=== PATIENT | male | born 1960 | race Caucasian/White ===

== ENCOUNTER 2019-11-12 15:57 | Inpatient (IN) | payer BC ==
[~2019-11-12] VITALS: Ht 188 cm; Wt 155.5 kg
--- NOTE | ~2019-11-12 | CON ---
[address] [address] CONSULTATION Name: CYNTHIA LIZARRAGA Room: [address] IN M.R.#: [id number] Admission: 11/12/19 Attend Phys: Marine Barclay MD Discharge: Date of : 60 Report #: [id number] THIS REPORT FOR: //name// cc: Physician not on staff Physician not on staff ~ THIS REPORT FOR: //name// CC: AIDE Barclay Physician staff DATE OF SERVICE: 11/14/2019 REASON FOR CONSULTATION: Thrombocytopenia. REQUESTING PHYSICIAN: Dr. Barclay. 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 He was still breathing and had tachycardia. He was brought to the Emergency Room by EMS. He was found to have sepsis with elevated lactic acid and was admitted to the ICU. He was found to have thrombocytopenia. Hematology consult is requested. Today, he is feeling much better. He is awake, oriented. He does not have any knowledge of having pancytopenia or liver cirrhosis. He admits having a history of alcohol abuse, but currently does not drink. He states he has primary care physician in [facility]. In April, he was evaluated. He believes he had a CT scan of abdomen done, which did not show any abnormality as far as he knows. He does not have any history of hematochezia, melena. SOCIAL HISTORY: Lives with . He does not smoke. FAMILY HISTORY: Noncontributory. REVIEW OF SYSTEMS: See above. PHYSICAL EXAMINATION: GENERAL: Reveals overweight white man, not in acute distress. VITAL SIGNS: Blood pressure 129/63, heart rate is 80, temperature 98.9, respirations 17. HEENT: Does not reveal icterus. NECK: Supple. CARDIAC: Normal S1, S2. LUNGS: Clear. ABDOMEN: Obese. No tenderness on the right upper quadrant, palpation. EXTREMITIES: Lower extremity +2 [place] [address] CONSULTATION Name: CYNTHIA LIZARRAGA Room: [address]#: [id number] Admission: 11/12/19 Attend Phys: Marine Barclay MD Discharge: Date of : 60 Report #: [id number] MENTAL STATUS: Alert and oriented x 3. There is no supraclavicular, axillary lymphadenopathy. LABORATORY DATA: White count 8.9, hemoglobin 10.5, platelets 58, AST 310, ALT ____, total bilirubin 2.4. CT of chest, abdomen and pelvis shows hepatosplenomegaly, retroperitoneal lymphadenopathy. ASSESSMENT AND PLAN: 1. 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 I advised the patient to continue to follow up with maid cleaning cooking when he arrives to [place]. 2. Intraabdominal lymphadenopathy of unclear etiology. I advised him that he will need to have a followup CT scan to make sure that lymphadenopathy is resolved. Thank you very much for allowing me to participate in care of this patient. By: [id number] Edmonds MD /nt
[2019-11-12] MEDS ORDERED: SERTRALINE HCL100 MG PO (16:04)
[2019-11-12] MEDS ORDERED: LISINOPRIL-HCT1 EAC2 PO (16:04)
[2019-11-12] MEDS ORDERED: ASA81BEC PO (16:05)
[2019-11-12 16:10] VITALS: BP 109/54
[2019-11-12 16:27] LABS: BE -7.4 mmol/L (-2 to +3); PCO2 21.4 mmHg (35.0-45.0); PO2 75.1 mmHg (75.0-100.0)
[2019-11-12 16:45] LABS: HEMATOCRIT 33.9 % (42.0-52.0); HEMOGLOBIN 11.6 gm/dL (14.0-18.0); MCH 29.3 pg (26.0-34.0); MCHC 34.2 g/dL (28.0-37.0); MCV 85.6 fL (80.0-100.0); MPV 8.5 fl. (7.2-11.1); NUCLEATED RBCS 0 /100WBC; PLATELET COUNT* 77 thou/uL (150-400); RBC 3.97 mil/uL (4.50-6.00); RDW-CV 16.3 % (10.5-14.5); WBC 16.6 thou/uL (4.0-11.0)
[2019-11-12 16:53] LABS: CREATININE 2.5 mg/dL (0.6-1.3); POTASSIUM 3.6 mmol/L (3.5-5.1)
[2019-11-12 17:07] LABS: ALBUMIN 2.7 g/dL (3.4-5.0); MAGNESIUM 1.4 mg/dL (1.8-2.4); TOTAL BILIRUBIN 1.8 mg/dL (<0.1-1.0); TOTAL PROTEIN 6.3 g/dL (6.4-8.2)
[2019-11-12 17:17] LABS: APTT 32.2 Seconds (25.0-31.3); INR 1.8; PROTIME 18.1 Seconds (9.20-11.50)
[2019-11-12 17:47] LABS: ABSOLUTE LYMPHOCYTES 0.2 thou/uL (0.8-5.3); ABSOLUTE MONOCYTES 0.5 thou/uL (0.0-1.2); ABSOLUTE NEUTROPHILS 15.9 thou/uL (1.6-8.1); ANISOCYTOSIS 1+; PLATELET ESTIMATE DECREASED
[2019-11-12 18:13] LABS: INFLUENZA A ANTIGEN Negative (Negative); INFLUENZA B ANTIGEN Negative (Negative)
[2019-11-12 18:42] LABS: URINE BILIRUBIN 1+ (Negative); URINE BLOOD 3+ (Negative); URINE CLARITY CLEAR; URINE COLOR YELLOW; URINE GLUCOSE-RANDOM NEGATIVE (Negative); URINE KETONES 1+ (Negative); URINE LEUKOCYTES-REFLEX NEGATIVE (Negative); URINE NITRITE-REFLEX NEGATIVE (Negative); URINE PROTEIN 2+ (Negative); URINE SPECIFIC GRAVITY >= 1.030 (1.005-1.030); URINE UROBILINOGEN 0.2 E.U./dl (0.2-1.0)
[2019-11-12 18:44] LABS: ICTOTEST (BILI CONFIRMATORY) Negative (Negative)
[2019-11-12 18:48] LABS: HYALINE CASTS >10 Many /LPF (None Seen)
[2019-11-12 18:49] LABS: BACTERIA-REFLEX 1-9 Few /HPF (None Seen); CRYSTALS None Seen /LPF (None Seen); MUCUS None Seen strn/LPF (None Seen); SQUAMOUS 4-10 Moderate /LPF (0-3); URINE RBC 3-10 Few /HPF (0-2); URINE WBC-REFLEX 0-5 Rare /HPF (0-5)
[2019-11-12 20:26] VITALS: BP 115/74
[2019-11-12 21:13] VITALS: BP 168/66
[2019-11-12 22:01] VITALS: BP 156/48
[2019-11-12 23:01] VITALS: BP 130/67
[2019-11-13] VITALS (20 sets, daily range): BP systolic 100–166; BP diastolic 53–80
[2019-11-13 05:20] LABS: HEMATOCRIT 30.6 % (42.0-52.0); HEMOGLOBIN 10.5 gm/dL (14.0-18.0); MCH 29.6 pg (26.0-34.0); MCHC 34.4 g/dL (28.0-37.0); MCV 86.2 fL (80.0-100.0); MPV 8.5 fl. (7.2-11.1); RBC 3.56 mil/uL (4.50-6.00); RDW-CV 16.2 % (10.5-14.5); WBC 15.2 thou/uL (4.0-11.0)
[2019-11-13 05:34] LABS: CREATININE 1.6 mg/dL (0.6-1.3); POTASSIUM 3.7 mmol/L (3.5-5.1)
[2019-11-13 05:43] LABS: ALBUMIN 2.3 g/dL (3.4-5.0); MAGNESIUM 1.6 mg/dL (1.8-2.4); TOTAL BILIRUBIN 2.2 mg/dL (<0.1-1.0); TOTAL PROTEIN 5.6 g/dL (6.4-8.2); TROPONIN-I LEVEL 0.18 ng/mL (<0.06)
--- NOTE | 2019-11-13 10:14 | EKG ---
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: HERNANDEZ : 1960 Requested By: Shae Nice Order Number: [id number] Sandy MD: Huey Rudolph Measurements Intervals [place] Rate: 132 P: 25 WA: 132 QRS: 33 QRSD: 103 T: 9 QT: 291 QTc: 431 Interpretive Statements Sinus tachycardia Low voltage, precordial leads Baseline wander in lead(s) V1,V4,V6 No previous ECG available for comparison Electronically Signed On 11-13-2019 10:13:54 CDT by Huey Rudolph [email or web address] <ELECTRONICALLY SIGNED> By: Huey Rudolph MD, [facility] 11/13/19 1013 1602 160 Huey Rudolph MD, [facility] /EPI
[2019-11-13 12:23] LABS: AMP/METHAMP Negative (Negative); BARBITURATES Negative (Negative); BENZODIAZEPINES Negative (Negative); COCAINE Negative (Negative); METHADONE Negative (Negative); OPIATES Negative (Negative); PCP Negative (Negative); THC Negative (Negative)
[2019-11-13 16:15] LABS: ABSOLUTE EOSINOPHILS 0.2 thou/uL (0.0-0.7); ABSOLUTE LYMPHOCYTES 1.3 thou/uL (0.8-5.3); ABSOLUTE MONOCYTES 0.8 thou/uL (0.0-1.2); ABSOLUTE NEUTROPHILS 8.2 thou/uL (1.6-8.1); BASOPHILS 0.4 %; EOSINOPHILS 2.2 %; HEMOGLOBIN 10.1 gm/dL (14.0-18.0); MCHC 34.8 g/dL (28.0-37.0); MCV 86.4 fL (80.0-100.0); MONOCYTES 7.3 %; MPV 8.4 fl. (7.2-11.1); NUCLEATED RBCS 0 /100WBC; PLATELET COUNT* 59 thou/uL (150-400); POLYS 78.1 %; RBC 3.36 mil/uL (4.50-6.00); RDW-CV 16.4 % (10.5-14.5); WBC 10.5 thou/uL (4.0-11.0)
[2019-11-13 16:29] LABS: ALBUMIN 2.2 g/dL (3.4-5.0); CALCIUM 7.8 mg/dL (8.5-10.1); CREATININE 1.4 mg/dL (0.6-1.3); MAGNESIUM 2.2 mg/dL (1.8-2.4); PHOSPHORUS* 2.7 mg/dL (2.5-4.9); POTASSIUM 3.7 mmol/L (3.5-5.1); TOTAL BILIRUBIN 2.4 mg/dL (<0.1-1.0); TOTAL PROTEIN 5.4 g/dL (6.4-8.2)
[2019-11-13 16:36] LABS: INR 1.9; PROTIME 19.1 Seconds (9.20-11.50)
--- NOTE | 2019-11-13 16:52 | 2DMMODE ---
[place] [address] 2 D/M-MODE ECHOCARDIOGRAM Name: CYNTHIA LIZARRAGA Room: [address] ADM IN M.R.#: [id number] Admission: 11/12/19 Attend Phys: Marine Barclay, Discharge: Date of : 60 Date of Service: 11/13/19 1652 Report #: [id number] THIS REPORT FOR: cc: Physician not on staff Physician not on staff Huey Rudolph MD [facility] ~ APPROVED REPORT Study performed: 11/13/2019 14:41:30 EXAM: Limited 2D, Doppler, and color-flow Echocardiogram Patient Location: Bedside BSA: 2.66 HR: 89 bpm BP: 133/53 mmHg Other Information Study Quality: Adequate Indications Dyspnea 2D Dimensions IVSd: 14.99 (7-11mm) LVOT Diam: 18.73 (18-24mm) LVDd: 52.67 mm PWd: 13.95 (7-11mm) Ascending Ao: 36.58 (22-36mm) LVDs: 35.52 (25-40mm) Aortic Root: 32.11 mm Volumes Left Atrial Volume (Systole) LA ESV Index: 27.20 mL/m2 Aortic Valve AoV Peak Chandler.: 1.55 m/s AO Peak Gr.: 9.61 mmHg LVOT Max P.42 mmHg AO Mean Gr.: 5.72 mmHg LVOT Mean P.18 mmHg LVOT Max V: 0.78 m/s AO V2 VTI: 24.89 cm LVOT Mean V: 0.50 m/s MINDY (VTI): 1.28 cm2 LVOT V1 VTI: 11.53 cm Mitral Valve E/A Ratio: 1.44 MV Decel. Time: 167.83 [place] [address] 2 D/M-MODE ECHOCARDIOGRAM Name: CYNTHIA LIZARRAGA Room: [address] IN [facility]#: [id number] Admission: 11/12/19 Attend Phys: Marine Barclay, Discharge: Date of : 60 Date of Service: 11/13/19 1652 Report #: [id number] MV E Max Chandler.: 0.94 m/s MV PHT: 48.67 ms MVA (PHT): 4.52 cm2 Pulmonary Valve PV Peak Chandler.: 1.11 m/s PV Peak Gr.: 4.89 mmHg Left Ventricle The left ventricle is normal size. There is normal LV segmental wall motion. Mild concentric left ventricular hypertrophy. Left ventricular systolic function is normal. The left ventricular ejection fraction is within the normal range. LVEF is 55-60%. Right Ventricle Right ventricle is dilated. The right ventricular systolic function is normal. Atria The left atrium size is normal. Interatrial septum not well visualized. Right atrium is dilated. Aortic Valve The Aortic valve is sclerotic. No aortic regurgitation is present. There is no aortic valvular stenosis. Mitral Valve The mitral valve is normal in structure. Trace mitral regurgitation. No evidence of mitral valve stenosis. Tricuspid Valve The tricuspid valve is normal in structure. There is trace tricuspid valve regurgitation noted. Pulmonic Valve The pulmonary valve is normal in structure. There is no pulmonic valvular regurgitation. Great Vessels The aortic root is normal in size. Aortic arch is not visualized. IVC is not visualized. Pericardium There is no pericardial effusion. <Conclusion> LVEF is 55-60%. [place] [address] 2 D/M-MODE ECHOCARDIOGRAM Name: CYNTHIA LIZARRAGA Room: [address] IN M.R.#: [id number] Admission: 11/12/19 Attend Phys: Marine Barclay, Discharge: Date of : 60 Date of Service: 11/13/191651 Report #: [id number] Mild concentric left ventricular hypertrophy. Right ventricle is dilated. The Aortic valve is sclerotic. <ELECTRONICALLY SIGNED> By: Huey Rudolph MD, FACC 11/13/19 165 51 1652 Huey Rudolph MD, FACC /INF
[2019-11-14] VITALS (12 sets, daily range): BP systolic 110–132; BP diastolic 63–76
[2019-11-14 02:06] LABS: HEPATITIS B SURFACE AG Negative (Negative)
[2019-11-14 04:33] LABS: ABSOLUTE EOSINOPHILS 0.2 thou/uL (0.0-0.7); ABSOLUTE LYMPHOCYTES 0.3 thou/uL (0.8-5.3); ABSOLUTE MONOCYTES 0.4 thou/uL (0.0-1.2); ABSOLUTE NEUTROPHILS 7.9 thou/uL (1.6-8.1); BASOPHILS 0.4 %; EOSINOPHILS 2.1 %; HEMATOCRIT 30.3 % (42.0-52.0); HEMOGLOBIN 10.5 gm/dL (14.0-18.0); LYMPHOCYTES 3.5 %; MCH 30.1 pg (26.0-34.0); MCHC 34.6 g/dL (28.0-37.0); MCV 87.2 fL (80.0-100.0); MPV 8.7 fl. (7.2-11.1); NUCLEATED RBCS 0 /100WBC; PLATELET COUNT* 58 thou/uL (150-400); RBC 3.47 mil/uL (4.50-6.00); RDW-CV 16.6 % (10.5-14.5); WBC 8.9 thou/uL (4.0-11.0)
[2019-11-14 04:56] LABS: ALBUMIN 2.1 g/dL (3.4-5.0); ALKALINE PHOSPHATASE 29 U/L (46-116); ANION GAP 7 mmol/L (7-16); BUN 35 mg/dL (7-18); CHLORIDE 104 mmol/L (98-107); CHOLESTEROL 124 mg/dL (<200); CO2 24 mmol/L (21-32); CREATININE 1.2 mg/dL (0.6-1.3); GLUCOSE 163 mg/dL (70-99); HDL CHOLESTEROL 13 mg/dL (>40); LDL CHOLESTEROL 90 mg/dL (<100); MAGNESIUM 2.4 mg/dL (1.8-2.4); POTASSIUM 4.1 mmol/L (3.5-5.1); SGOT 310 U/L (15-37); SGPT 164 U/L (30-65); SODIUM 135 mmol/L (136-145); TC:HDL 9.5 Ratio (Not establshd); TOTAL BILIRUBIN 2.4 mg/dL (<0.1-1.0); TOTAL PROTEIN 5.5 g/dL (6.4-8.2); TRIGLYCERIDE 108 mg/dL (<150); VLDL 22 mg/dL (<40)
[2019-11-14 04:57] LABS: SERUM ASSESSMENT CLEAR
--- NOTE | 2019-11-14 11:43 | EKG ---
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27 : 1960 Requested By: Huey Rudolph Order Number: [id number] Sandy MD: Huey Rudolph Measurements Intervals [place] Rate: 83 P: 46 NE: 167 QRS: 39 QRSD: 115 T: 32 QT: 395 QTc: 465 Interpretive Statements Sinus rhythm Nonspecific intraventricular conduction delay Compared to ECG 11/12/2019 16:02:09 Intraventricular conduction delay now present Sinus tachycardia no longer present Electronically Signed On 11-14-2019 11:43:26 CDT by Huey Rudolph [email or web address] <ELECTRONICALLY SIGNED> By: Huey Rudolph MD, FACC 11/14/19 1143 1016 1016 Huey Rudolph MD, [facility] /EPI
[2019-11-15 00:26] VITALS: BP 116/74
[2019-11-15 04:09] LABS: ABSOLUTE LYMPHOCYTES 0.5 thou/uL (0.8-5.3); ABSOLUTE MONOCYTES 0.7 thou/uL (0.0-1.2); ABSOLUTE NEUTROPHILS 7.1 thou/uL (1.6-8.1); BASOPHILS 0.3 %; EOSINOPHILS 0.1 %; HEMATOCRIT 31.7 % (42.0-52.0); HEMOGLOBIN 10.9 gm/dL (14.0-18.0); LYMPHOCYTES 6.4 %; MCH 29.8 pg (26.0-34.0); MCHC 34.5 g/dL (28.0-37.0); MCV 86.5 fL (80.0-100.0); MONOCYTES 8.7 %; MPV 8.5 fl. (7.2-11.1); NUCLEATED RBCS 0 /100WBC; PLATELET COUNT* 65 thou/uL (150-400); POLYS 84.5 %; RBC 3.67 mil/uL (4.50-6.00); RDW-CV 16.8 % (10.5-14.5); WBC 8.4 thou/uL (4.0-11.0)
[2019-11-15 04:35] LABS: ALBUMIN 2.2 g/dL (3.4-5.0); CALCIUM 8.4 mg/dL (8.5-10.1); CREATININE 1.1 mg/dL (0.6-1.3); MAGNESIUM 2.4 mg/dL (1.8-2.4); POTASSIUM 3.8 mmol/L (3.5-5.1); TOTAL PROTEIN 5.9 g/dL (6.4-8.2)
[2019-11-15 04:38] LABS: % SATURATION 17 % (20-39); IRON 44 ug/dL (50-175)
--- NOTE | 2019-11-15 07:39 | CON ---
[address] [address] CONSULTATION Name: CYNTHIA LIZARRAGA Room: [address] IN M.R.#: [id number] Admission: 11/12/19 Attend Phys: Marine Barclay MD Discharge: Date of : 60 Report #: [id number] THIS REPORT FOR: //name// cc: Physician not on staff Physician not on staff ~ THIS REPORT FOR: //name// CC: AIDE Barclay MD PRIMARY CARE Physician staff DICTATED BY: Maame Bowman [facility] DATE OF SERVICE: 11/14/2019 PRIMARY CARE PHYSICIAN: The patient's primary care physician is in [place], he cannot recall the spelling or his name at this time. Please note at the time of this dictation, the patient was seen and physically examined by myself. REASON FOR CONSULTATION: Elevated LFTs and cirrhosis of the liver. HISTORY OF PRESENT ILLNESS: This is a 59-year-old male who was found down at a truck stop who was unresponsive, but still breathing with a high-grade fever of noted to be 100.5. Apparently, he had not been feeling well. He does have a past history of smoking, but quit 30 years ago. He does have a history of some sleep apnea as well that has been noted. He was also having some fever and chills and he states that his swelling of his lower extremities got significantly worse as well. The patient states he has had a colonoscopy, he states which was done less than 10 years ago and it was normal. In [place], he has never had an upper scope done. He denies any issues with any acid reflux and does not take any medicine for acid reflux at this time. He states his bowels move usually daily, soft and formed with no evidence of any bright red blood or black stools. He also mentions that he has been told he has some liver disease, cirrhosis, but etiology why he has that he has never been told or had any further workup to his knowledge. ALLERGIES: No known drug allergies. MEDICATIONS FROM HOME: See his MAR. PAST MEDICAL HISTORY: Sleep apnea, cirrhosis. PAST SURGICAL HISTORY: [place] [address] CONSULTATION Name: CYNTHIA LIZARRAGA Room: [address] IN [facility]#: [id number] Admission: 11/12/19 Attend Phys: Marine Barclay MD Discharge: Date of : 60 Report #: [id number] FAMILY HISTORY: Negative for any GI or female cancers. 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 His recently had COVID; however, he is negative. He has not smoked for more than 30 years and alcohol is only rarely on social occasions. The patient is noted to be morbidly obese as well. REVIEW OF SYSTEMS: Twelve-point review of systems is essentially negative except what is mentioned in the HPI. PHYSICAL EXAMINATION: VITAL SIGNS: Temperature 37.2, pulse 80, respirations 17, blood pressure 124/63. HEART: Regular rate and rhythm. LUNGS: Diminished, especially in the bases. ABDOMEN: Rotund. Positive bowel sounds in all 4 quadrants with no masses or tenderness noted. LABORATORY AND DIAGNOSTIC DATA: Hemoglobin 10.5, white count 8.9, platelets are 58,000. GFR is 62. BUN is 35, creatinine is 1.2. PT is 19.1, INR is 1.9. Total bilirubin 2.4, alkaline phosphatase 29, ALT 164, AST 310. His drug screen was negative, acute hepatitis panel was negative. CT showed cirrhosis with hepato and splenomegaly, numerous retroperitoneal lymphadenopathies noted, some cardiomegaly and right greater than left infiltrates. Ultrasound shows hepatosplenomegaly with cirrhosis, noted that his MELD is 19 and Child-Bo is B. IMPRESSION: 1. Cirrhosis, etiology unknown, but decompensated. 2. Transaminitis. 3. Thrombocytopenia. 4. Sepsis. He had Gram positive in his blood. 5. Obesity. 6. Pneumonia. PLAN: 1. Recommended EGD. The patient would like to wait until he gets back to [place] for further evaluation. 2. We will continue to monitor his labs. 3. Further recommendations to be made once Dr. Roche sees the [place] [address] CONSULTATION Name: CYNTHIA LIZARRAGA Room: [address] IN M.R.#: [id number] Admission: 11/12/19 Attend Phys: Marine Barclay MD Discharge: Date of : 60 Report #: [id number] Thank you for allowing us to participate in this patient's care. Please do not hesitate to call with any questions in regard to this consult. <ELECTRONICALLY SIGNED> By: Leon Roche DO 11/15/19 0739 0829 [id number] Roche DO /nt
[2019-11-15 08:01] VITALS: BP 130/79
--- NOTE | 2019-11-15 16:07 | CON ---
[address] [address] CONSULTATION Name: CYNTHIA LIZARRAGA Room: [address] IN M.R.#: [id number] Admission: 11/12/19 Attend Phys: Marine Barclay MD Discharge: Date of : 60 Report #: [id number] THIS REPORT FOR: //name// cc: Physician not on staff Physician not on staff ~ THIS REPORT FOR: //name// CC: [facility] physician/PCP Marine Barclay DATE OF SERVICE: 11/13/2019 CARDIOLOGY CONSULTATION HISTORY OF PRESENT ILLNESS: The. The patient is a 59-year-old white male who I was asked to see in the hospital today after he was noted to have an elevated troponin. The patient has no previous history of heart disease. He lives in [place]. 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 He does not exercise on a regular basis. Recently, he has felt not well with fever and drowsiness. He apparently did have a syncopal spell 4 months ago. He has no previous history of heart disease. He has had no previous cardiac evaluation. He apparently was found at a truck stop unresponsive. He apparently was still breathing and had a pulse. He was brought to [place] by ambulance. He was drowsy on admission. He denies a history of a cough, sore throat, loss of taste or smell. He denies a history of chest pain, increased shortness of breath, or palpitations. He has had some lower extremity edema. PAST MEDICAL HISTORY: He has apparently had hip surgery. He does have a history of hypertension. MEDICATIONS: At home include sertraline, lisinopril/HCT, aspirin. ALLERGIES: He has no known drug allergies. FAMILY HISTORY: Negative for heart disease. SOCIAL HISTORY: He is . He and his live in [place]. No smoking or alcohol abuse or illicit drug use. REVIEW OF SYSTEMS: He is overweight, being 6 300 pounds. No history of stroke, asthma, liver disease, kidney disease, cancer, psychiatric illness, chronic skin condition. PHYSICAL EXAMINATION: GENERAL: A large middle-aged male, lying in bed. He appeared in no distress. VITAL SIGNS: He had a blood pressure of 130/70, pulse is 110, [place] [address] CONSULTATION Name: CYNTHIA LIZARRAGA Room: [address]#: [id number] Admission: 11/12/19 Attend Phys: Marine Barclay MD Discharge: Date of : 60 Report #: [id number] night was 100.3. HEENT: He was anicteric. Conjunctivae are pink. Mucous membranes moist. NECK: Veins do not appear distended. No carotid bruits. Neck supple. CHEST: Clear to auscultation. CARDIOVASCULAR: Regular, tachycardia. No significant murmur. ABDOMEN: Obese. EXTREMITIES: Had trace edema in the foot. NEUROLOGIC: He is very drowsy. RADIOLOGICAL DATA: ECG shows sinus tachycardia. There was no significant ST or T-wave change noted. His workup in the Emergency Room last night included a chest x-ray that showed cardiomegaly, clear lung fonseca. LABORATORY DATA: Sodium 135, potassium 3.7, creatinine 1.6. SGOT 277, bilirubin 2.2, SGPT 107. Albumin 2.3. His troponin was 0.20. BNP 2274. White blood cell count 15.2, hemoglobin 11.6, platelet count is only 64,000. IMPRESSION AND RECOMMENDATIONS: 1. Fever. No obvious source. His rapid COVID test in the Emergency Room apparently was negative. 2. Cardiomegaly and peripheral edema. Recommend echocardiogram. 3. Hypertension. The patient is on ZAYRA inhibitor, diuretic. 4. Obesity. 5. Elevated liver function studies. We would recommend liver ultrasound. 6. Borderline troponin. No evidence of acute myocardial infarction. Recommend echocardiogram. 7. Anemia. No history of bleeding. 8. Thrombocytopenia. <ELECTRONICALLY SIGNED> By: Huey Rudolph MD, FACC 11/15/19 1607 0817 [id number] Rudolph MD, FACC /nt
[2019-11-15 20:00] VITALS: BP 155/87
[2019-11-15 22:06] LABS: IgG 1232 mg/dL (603-1613); IgM 153 mg/dL (20-172)
[2019-11-15 23:45] VITALS: BP 159/85
[2019-11-16 04:00] VITALS: BP 159/81
[2019-11-16 04:50] LABS: HEMATOCRIT 29.9 % (42.0-52.0); HEMOGLOBIN 10.1 gm/dL (14.0-18.0); MCH 29.1 pg (26.0-34.0); MCHC 33.6 g/dL (28.0-37.0); MCV 86.5 fL (80.0-100.0); RBC 3.46 mil/uL (4.50-6.00); RDW-CV 16.7 % (10.5-14.5); WBC 8.9 thou/uL (4.0-11.0)
[2019-11-16 05:11] LABS: CALCIUM 8.5 mg/dL (8.5-10.1); CREATININE 1.1 mg/dL (0.6-1.3); MAGNESIUM 2.4 mg/dL (1.8-2.4); TOTAL BILIRUBIN 1.6 mg/dL (<0.1-1.0); TOTAL PROTEIN 5.6 g/dL (6.4-8.2)
[2019-11-16 08:00] VITALS: BP 148/75
[2019-11-16 15:07] LABS: CERULOPLASMIN 22.2 mg/dL (16.0-31.0)
[2019-11-16 16:00] VITALS: BP 151/63
[2019-11-16 20:00] VITALS: BP 164/76; BP 174/86
[2019-11-17] VITALS: BP 156/77
[2019-11-17 04:00] VITALS: BP 177/90
[2019-11-17 08:00] VITALS: BP 173/93
[2019-11-17 13:34] VITALS: BP 186/92
[2019-11-17 17:14] VITALS: BP 154/63
[2019-11-17 20:00] VITALS: BP 172/81
[2019-11-18] VITALS (11 sets, daily range): BP systolic 138–178; BP diastolic 58–81
[2019-11-18 07:10] LABS: HEMATOCRIT 32.2 % (42.0-52.0); HEMOGLOBIN 10.7 gm/dL (14.0-18.0); MCH 28.6 pg (26.0-34.0); MCHC 33.1 g/dL (28.0-37.0); MCV 86.4 fL (80.0-100.0); MPV 8.2 fl. (7.2-11.1); RBC 3.73 mil/uL (4.50-6.00); RDW-CV 16.5 % (10.5-14.5); WBC 13.6 thou/uL (4.0-11.0)
[2019-11-18 07:37] LABS: ALBUMIN 2.2 g/dL (3.4-5.0); CALCIUM 8.3 mg/dL (8.5-10.1); CREATININE 0.9 mg/dL (0.6-1.3); MAGNESIUM 1.9 mg/dL (1.8-2.4); TOTAL BILIRUBIN 2.1 mg/dL (<0.1-1.0)
[2019-11-18 10:06] LABS: ANA INTERPRETATION Negative (Negative)
--- NOTE | 2019-11-18 17:48 | TEE ---
[place] [address] TRANSESOPHAGEAL ECHOCARDIOGRAM Name: CYNTHIA LIZARRAGA Room: [address] IN .R.#: [id number] Admission: 11/12/19 Attend Phys: Marine Barclay, Discharge: Date of : 60 Date of Service: 11/18/19 1747 Report #: [id number] THIS REPORT FOR: cc: Physician not on staff Physician not on staff Dieudonne Mcgrath MD [facility] ~ ADDENDUM APPROVED REPORT Study performed: 11/18/2019 11:38:20 EXAM: Transesophageal Echocardiogram Patient Location: CVL BSA: 2.85 HR: 82 bpm BP: 152/69 mmHg Other Information Study Quality: Good Indications Bacteremia Echo Enhancing Agent Indication: Rule out Shunt Agent(s) / Amount(s) Used: Agitated Saline cc Procedure After obtaining informed consent, patient underwent transesophageal echo in the [facility]. Type of Sedation : Conscious Sedation Sedation was administered by Ute Beckett RN. Sedation was achieved intravenously with: Versed (3) Fentanyl (75) Transesophageal probe was inserted and advanced into esophagus without difficulty by Dieudonne Mcgrath MD, FACC. Echo enhancement indication: R/O Septal defect. Echo enhancement agent administered: Agitated Saline The PJ was performed without complications. Throughout the procedure, the blood pressure, pulse oximetry, cardiac rhythm, and rate were monitored. The patient tolerated the procedure without adverse effects. Recovery from conscious sedation was uneventful and vital signs were stable. [address] [address] TRANSESOPHAGEAL ECHOCARDIOGRAM Name: CYNTHIA LIZARRAGA Room: [address] IN .R.#: [id number] Admission: 11/12/19 Attend Phys: Marine Barclay, Discharge: Date of : 60 Date of Service: 11/18/19 1747 Report #: [id number] Left Ventricle The left ventricle is normal size. There is normal LV segmental wall motion. There is normal left ventricular wall thickness. Left ventricular systolic function is normal. LVEF is 60-65%. Atria Injection of bubbles documented no interatrial shunt. Aortic Valve The aortic valve is normal in structure. No aortic regurgitation is present. There is no aortic valvular stenosis. Mitral Valve The mitral valve is normal in structure. Trace mitral regurgitation. No evidence of mitral valve stenosis. Tricuspid Valve The tricuspid valve is normal in structure. There is no tricuspid valve regurgitation noted. Pulmonic Valve Pulmonic valve is not well visualized. Great Vessels The aortic root is normal in size. <Conclusion> The left ventricle is normal size. There is normal left ventricular wall thickness. Left ventricular systolic function is normal. LVEF is 60-65%. There is normal LV segmental wall motion. Injection of bubbles documented no interatrial shunt. Trace mitral regurgitation. No valvular vegetations seen. <ELECTRONICALLY SIGNED> By: Dieudonne Mcgrath MD, FACC 11/18/191746 46 46 Dieudonne Mcgrath MD, FACC /INF
[2019-11-19] VITALS: BP 148/69
[2019-11-19 04:00] VITALS: BP 164/79
[2019-11-19 08:00] VITALS: BP 151/83
[2019-11-19 08:07] LABS: HEMATOCRIT 32.6 % (42.0-52.0); HEMOGLOBIN 10.7 gm/dL (14.0-18.0); MCH 28.3 pg (26.0-34.0); MCV 85.8 fL (80.0-100.0); MPV 8.4 fl. (7.2-11.1); PLATELET COUNT* 97 thou/uL (150-400); RDW-CV 16.6 % (10.5-14.5); WBC 12.3 thou/uL (4.0-11.0)
[2019-11-19 08:17] LABS: APTT 28.9 Seconds (25.0-31.3); INR 1.4; PROTIME 14.6 Seconds (9.20-11.50)
[2019-11-19 08:19] LABS: ALBUMIN 2.2 g/dL (3.4-5.0); CALCIUM 8.4 mg/dL (8.5-10.1); CREATININE 0.9 mg/dL (0.6-1.3); MAGNESIUM 1.8 mg/dL (1.8-2.4); POTASSIUM 3.9 mmol/L (3.5-5.1); TOTAL BILIRUBIN 2.2 mg/dL (<0.1-1.0); TOTAL PROTEIN 6.2 g/dL (6.4-8.2)
[2019-11-19 10:29] LABS: NUCLEATED RBCS 0 /100WBC
[2019-11-19 11:00] LABS: ABSOLUTE EOSINOPHILS 0.2 thou/uL (0.0-0.7); ABSOLUTE LYMPHOCYTES 1.4 thou/uL (0.8-5.3); ABSOLUTE MONOCYTES 1.1 thou/uL (0.0-1.2); ABSOLUTE NEUTROPHILS 9.6 thou/uL (1.6-8.1); PLATELET ESTIMATE ADEQUATE
[2019-11-19 12:00] VITALS: BP 143/57
[2019-11-19 20:00] VITALS: BP 134/67
[2019-11-20] VITALS: BP 123/60
[2019-11-20 04:00] VITALS: BP 139/60
[2019-11-20 08:00] VITALS: BP 141/71
[2019-11-20 08:48] LABS: HEMATOCRIT 31.8 % (42.0-52.0); HEMOGLOBIN 10.7 gm/dL (14.0-18.0); MCH 28.8 pg (26.0-34.0); MCHC 33.6 g/dL (28.0-37.0); MCV 85.6 fL (80.0-100.0); MPV 7.9 fl. (7.2-11.1); RBC 3.71 mil/uL (4.50-6.00); RDW-CV 16.2 % (10.5-14.5); WBC 11.5 thou/uL (4.0-11.0)
[2019-11-20 09:47] LABS: ALBUMIN 2.3 g/dL (3.4-5.0); CALCIUM 8.1 mg/dL (8.5-10.1); CREATININE 0.9 mg/dL (0.6-1.3); MAGNESIUM 1.7 mg/dL (1.8-2.4); POTASSIUM 3.5 mmol/L (3.5-5.1); TOTAL BILIRUBIN 2.5 mg/dL (<0.1-1.0); TOTAL PROTEIN 6.5 g/dL (6.4-8.2)
[2019-11-20 16:38] VITALS: BP 124/57
[2019-11-20 20:00] VITALS: BP 149/68
[2019-11-21] VITALS: BP 140/71
[2019-11-21 04:00] VITALS: BP 138/66
[2019-11-21] MEDS ORDERED: XIFAXAN550 M1 PO (09:04)
[2019-11-21] MEDS ORDERED: HYDROCORT-PRAMO30 GM RECTAL (09:04)
[2019-11-21] MEDS ORDERED: FLUCONAZOLE 10100 MG PO (09:04)
[2019-11-21] MEDS ORDERED: CARAFATE 11 GM/10 M1 PO (09:04)
[2019-11-21] MEDS ORDERED: PROTONIX40 M2 PO (09:04)
[2019-11-21] MEDS ORDERED: LACTULOSE20 GM/30 M PO (09:04)
[2019-11-21 12:00] VITALS: BP 119/50
--- NOTE | 2019-11-21 12:21 | CON ---
[facility] [address] [place] [address] CONSULTATION Name: CYNTHIA LIZARRAGA Room: [address] IN M.R.#: [id number] Admission: 11/12/19 Attend Phys: Marine Barclay MD Discharge: Date of : 60 Report #: [id number] THIS REPORT FOR: //name// cc: Physician not on staff Physician not on staff ~ THIS REPORT FOR: //name// CC: AIDE Barclay Physician staff DATE OF SERVICE: 11/13/2019 REQUESTING PHYSICIAN: Dr. Marine Barclay. INDICATION FOR CONSULTATION: High-grade fever with sepsis, etiology uncertain. HISTORY OF PRESENT ILLNESS: This is a 59-year-old gentleman. He says he only has a remote history of smoking and only smoked occasionally more than 30 years ago. He does appear to have a clinical history consistent with obstructive sleep apnea. He has not been previously diagnosed. The patient is reported to live in [place]. 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 He has been on the road a lot. Over the last several days the patient has had a high-grade fever up to 39.6 degrees Celsius. He also had chills. He has been drowsy in fact has had significant change in his mental status compared with his baseline. He has also developed swelling of lower extremities. The patient also feels that he is significantly worse. The patient is noted to be in acute renal failure and having a significant metabolic acidosis with a creatinine of 2.5 on initial presentation. He also has significant elevation of his liver function enzymes and his coagulation studies are consistent with a low-grade DIC. The patient still does remain hemodynamically stable and he has been maintaining O2 saturation in the high 90s on 3 liters nasal cannula. In fact, he had the oxygen off. When I saw him, he has been fluid resuscitated with saline. There is improvement in his creatinine as well as metabolic acidosis as a result. The patient is significantly drowsy and therefore is unable to provide further history or review of systems. PAST MEDICAL HISTORY: Hypertension, hip surgery. He has a clinical history consistent with obstructive sleep apnea, he has not been previously diagnosed. SOCIAL HISTORY: He lives in [place]. 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 He says that he smoked occasionally more than 30 years ago, has not smoked for more than 30 years. No known history of heavy alcohol use or illegal drug use. ALLERGIES: [place] [address] CONSULTATION Name: CYNTHIA LIZARRAGA Room: [address] IN [facility]#: [id number] Admission: 11/12/19 Attend Phys: Marine Barclay MD Discharge: Date of : 60 Report #: [id number] CURRENT MEDICATIONS: List in Drive.SG reviewed. HOME MEDICATIONS: List in Drive.SG reviewed. FAMILY HISTORY: Negative for heart disease. There is no pertinent family history. PHYSICAL EXAMINATION: GENERAL: He is markedly drowsy, but arousable. He is able to communicate only to a limited extent; however, he is alert, awake and oriented. VITAL SIGNS: He has a pulse of 112 and a blood pressure of 133/53. He has a high-grade fever of 38.8. His O2 saturation is last recorded at 97%. He had briefly taken off oxygen when I saw him. He does appear to be hoarse. His body mass index is elevated to 41.3. HEENT: Head is normocephalic and atraumatic. He appears to have a narrow airway. NECK: Does not show raised JVP, asymmetry, mass or lymph nodes. CHEST: Symmetrical expansion on inspection and palpation. On auscultation, chest is essentially clear. HEART: Regular. There is no murmur. ABDOMEN: Mildly distended, nontender. EXTREMITIES: Lower extremities show 2+ edema bilaterally. There is no calf tenderness. SKIN: Dry and intact. NEUROLOGICAL: Mental status as above. He does move all extremities bilaterally equally and spontaneously with no focal deficit identified. LABORATORY DATA: The patient's chest x-rays yesterday as well as today are in [facility] and these are reviewed. There are increased reticular markings bilaterally, which could be secondary to mild increase in pulmonary vascular congestion as well as interstitial infiltrates secondary to viral or atypical pneumonia. It appears more likely to me that the patient has atypical or viral pneumonia. The patient had a subclavian central line in place yesterday, I do not see it in place today, it was malpositioned. It is possible that it has been removed. The patient's CBC, which shows significant thrombocytopenia. Chemistries, which show acute renal failure as well as acute liver injury in [facility] reviewed. Coagulation studies are consistent with mild DIC. Urinalysis is abnormal in [facility] reviewed. COVID-19 screen is negative. PCR is pending. Arterial blood gas yesterday shows a significant metabolic acidosis, compensated. ASSESSMENT AND PLAN: 1. Systemic inflammatory response syndrome/sepsis/suspected COVID-19. I have significant suspicion of COVID-19 despite the fact that the patient has antigen negative, the PCR is pending at this time. Certainly, there could be several [address] [address] CONSULTATION Name: CYNTHIA LIZARRAGA Room: [address] [place] [facility]#: [id number] Admission: 11/12/19 Attend Phys: Marine Barclay MD Discharge: Date of : 60 Report #: [id number] other etiologies. The patient is for a CT abdomen and pelvis as well as chest shortly. We will review and then advise further. If the patient's CT chest is consistent with COVID-19, then he would be a potential candidate for administration of convalescent plasma. We will need to evaluate logistics of arranging the same. The patient's LFTs are too high to administer remdesivir for remdesivir will be a significant risk. I will give him steroids. I went ahead and ordered one dose of Solu-Medrol. After reviewing CT it is likely that I will order more steroids. I agree with Zosyn. He has also been pancultured. I will also obtain a nasal swab for methicillin-resistant Staphylococcus aureus. Agree with continuing Zosyn. Linezolid is contraindicated in this patient and vancomycin will have significant risks, I therefore did not order either at this time, I will assess further once the CT is performed. If there are reticular infiltrates, I will add atypical coverage as well. 2. Acute respiratory insufficiency/altered mental status/suspected obstructive sleep apnea, I feel that the patient would benefit from a BiPAP while he is drowsy or asleep and potentially could be placed on BiPAP at this time and may benefit. The patient, however, at this time does appear to be needing to stay in the ICU and we do not have a negative pressure room available in the ICU at this time. I therefore did not order the same at this time, we will need to assess this further in case his respiratory status worsens. 3. Acute renal failure with metabolic acidosis. This does appear to be improved on the labs today. I will repeat labs this evening and see where we stand. Due to low platelets, I am trying to avoid an arterial stick for a repeat ABGs. It is possible that we need the same result. We will try to limit arterial sticks if possible. 4. Coagulopathy/thrombocytopenia possible low-grade DIC. The Oncology service has also been consulted. I will repeat coags as well as a D-dimer this evening. 5. 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 Echocardiogram is pending at this time. We would also recommend venous Dopplers. I held off on SCDs, pending venous Doppler results. We will place him on SCDs if these are negative, 6. Altered mental status. We will do a CT head as well. 7. Gastrointestinal prophylaxis. We would add Protonix. 8. IV access, may need a PICC line. Thanks for this consultation. The patient is critically ill at this time. Total time spent providing critical care to this patient today exceeds 55 minutes. <ELECTRONICALLY SIGNED> By: Reuben Cantor MD 11/21/19 1221 1405 [id number] Cantor MD /nt
[2019-11-21 16:35] VITALS: BP 128/44
[2019-11-21 20:00] VITALS: BP 115/55
[2019-11-22] VITALS: BP 129/62
[2019-11-22 04:00] VITALS: BP 147/64
[2019-11-22 05:13] LABS: ABSOLUTE BASOPHILS 0.1 thou/uL (0.0-0.2); ABSOLUTE EOSINOPHILS 0.2 thou/uL (0.0-0.7); ABSOLUTE LYMPHOCYTES 1.6 thou/uL (0.8-5.3); ABSOLUTE MONOCYTES 0.9 thou/uL (0.0-1.2); ABSOLUTE NEUTROPHILS 4.2 thou/uL (1.6-8.1); BASOPHILS 0.9 %; EOSINOPHILS 2.2 %; HEMATOCRIT 28.5 % (42.0-52.0); HEMOGLOBIN 9.7 gm/dL (14.0-18.0); LYMPHOCYTES 22.9 %; MCH 29.8 pg (26.0-34.0); MCHC 34.2 g/dL (28.0-37.0); MCV 87.1 fL (80.0-100.0); MONOCYTES 12.9 %; MPV 8.1 fl. (7.2-11.1); NUCLEATED RBCS 0 /100WBC; PLATELET COUNT* 74 thou/uL (150-400); POLYS 61.1 %; RBC 3.27 mil/uL (4.50-6.00); RDW-CV 16.1 % (10.5-14.5); WBC 6.9 thou/uL (4.0-11.0)
[2019-11-22 05:34] LABS: ALBUMIN 2.2 g/dL (3.4-5.0); CALCIUM 8.1 mg/dL (8.5-10.1); CREATININE 0.9 mg/dL (0.6-1.3); MAGNESIUM 1.7 mg/dL (1.8-2.4); POTASSIUM 3.4 mmol/L (3.5-5.1); TOTAL BILIRUBIN 2.5 mg/dL (<0.1-1.0); TOTAL PROTEIN 6.4 g/dL (6.4-8.2)
[2019-11-22 08:00] VITALS: BP 137/67
[2019-11-22 11:44] VITALS: BP 134/64
== END 2019-11-22 13:10 | DRG 871 ==
LOC: M.ERS 15:57 → M.2W 17:58 → M.TBA-ER 17:58 → M.ICU 17:58 → M.2W 11-15 14:09
PROVIDERS: Internal Medicine Cardiovascular Disease; Internal Medicine Critical Care Medicine; Internal Medicine Gastroenterology; Personal Emergency Response Attendant; ADMIT Internal Medicine; ATTEND Internal Medicine
PROC: 0DJ08ZZ Inspection of Upper Intestinal Tract, Via Natural or Artificial Opening Endoscopic (ICD-10-PCS; principal; 2019-11-15)
PROC: 05HY33Z Insertion of Infusion Device into Upper Vein, Percutaneous Approach (ICD-10-PCS; 2019-11-19)
PROC: 5A09357 Assistance with Respiratory Ventilation, Less than 24 Consecutive Hours, Continuous Positive Airway Pressure (ICD-10-PCS; 2019-11-22)
DX: A40.1 Sepsis due to streptococcus, group B (principal); R65.21 Severe sepsis with septic shock; G92 Toxic encephalopathy; J15.6 Pneumonia due to other Gram-negative bacteria; D68.9 Coagulation defect, unspecified; N17.9 Acute kidney failure, unspecified; D61.818 Other pancytopenia; Z68.41 Body mass index [BMI] 40.0-44.9, adult; I10 Essential (primary) hypertension; E66.9 Obesity, unspecified; D64.9 Anemia, unspecified; D69.6 Thrombocytopenia, unspecified; R59.1 Generalized enlarged lymph nodes; E66.01 Morbid (severe) obesity due to excess calories; K44.9 Diaphragmatic hernia without obstruction or gangrene; K21.00 Gastro-esophageal reflux disease with esophagitis, without bleeding; K70.30 Alcoholic cirrhosis of liver without ascites; I95.9 Hypotension, unspecified; F32.9 Major depressive disorder, single episode, unspecified; R13.10 Dysphagia, unspecified; Z79.899 Other long term (current) drug therapy

== ENCOUNTER 2019-11-22 11:54 | Inpatient (IN) | payer BC ==
[~2019-11-22] VITALS: Ht 188 cm; Wt 145.6 kg
--- NOTE | ~2019-11-22 | CON ---
[address] [address] CONSULTATION Name: CYNTHIA LIZARRAGA Room: [address] IN ..#: [id number] Admission: 11/22/19 Attend Phys: Mello Serrato MD Discharge: Date of : 60 Report #: [id number] THIS REPORT FOR: //name// cc: Physician not on staff Physician not on staff ~ REASON FOR CONSULTATION: Acute kidney injury. CONSULTING PHYSICIAN: Mello Serrato MD. HISTORY OF PRESENT ILLNESS: A 59-year-old gentleman initially admitted on 11/21 with strep bacteremia, right lower extremity cellulitis and pneumonia. I am asked to see him because of a rise in serum creatinine. His creatinine over the last 4 checks has been 1.8 but on 11/26, it was 0.8. He was receiving vancomycin. He did have a renal ultrasound, which was nonrevealing. He presently appears to be awake and alert and has no complaints. REVIEW OF SYSTEMS: Constitutional, psych, heme, eyes, ENT, respiratory, cardiac, GI, , endocrine, all negative except as documented above. PAST MEDICAL HISTORY: Cirrhosis, alcohol related; hypertension; depression. SOCIAL HISTORY: No tobacco. Positive alcohol. FAMILY HISTORY: Not pertinent in this 59-year-old gentleman. CURRENT MEDICATIONS: Reviewed. PHYSICAL EXAMINATION: VITAL SIGNS: Blood pressure is 125/69, pulse 76, respirations 20, temperature ____. GENERAL: No acute distress. EYES: Open. EARS: Externally normal. NECK: Supple. CARDIOVASCULAR: Regular rate. LUNGS: No crackles. ABDOMEN: Soft, nontender. No fluid wave. MUSCULOSKELETAL: Nontender. PSYCHIATRIC: Awake, alert. LABORATORY DATA: White cell count 4.7, hemoglobin 8.5, platelets 83. Sodium 135, potassium 4.4, chloride 102, bicarbonate 27, BUN 21, creatinine 1.8, glucose 90, calcium 9.1, albumin 1.9. ASSESSMENT: 1. Acute kidney injury with creatinine of 1.8 over the last 4 checks in the setting of bacteremia, pneumonia, alcoholic cirrhosis. 11/26, [place] [address] CONSULTATION Name: CYNTHIA LIZARRAGA Room: [address] ADM IN [facility]#: [id number] Admission: 11/22/19 Attend Phys: Mello Serrato MD Discharge: Date of : 60 Report #: [id number] 0.8; 11/26, vancomycin level was 18; kidney ultrasound was okay. 2. Hypertension. 3. Right lower extremity cellulitis. 4. Alcoholic cirrhosis. 5. Hypoalbuminemia with an albumin of 1.9. PLAN: 1. We will check a random vancomycin level. 2. Check UA. 3. Check bladder scan. 4. We will administer 2 doses of IV albumin. 5. Anticipate renal function will improve. Creatinine appears to have plateaued. We will monitor and follow along. Thank you for requesting my opinion in the care and management of this patient. By: [id number] Srinivasan Camara MD /nt
--- NOTE | ~2019-11-22 | PROC ---
[address] [address] PROCEDURE REPORT Name: CYNTHIA LIZARRAGA Room: [address] ADM IN ..#: [id number] Admission: 11/22/19 Attend Phys: Mello Serrato MD Discharge: Date of : 60 Report #: [id number] THIS REPORT FOR: //name// cc: Physician not on staff Physician not on staff ~ THIS REPORT FOR: //name// For GI report, please see the Provation report in Perceptive 7 content. By: [id number] Records Staff [facility] /HERNANDEZ
[~2019-11-22 11:54] MED LIST: ASA81BEC PO; CARAFATE 11 GM/10 M1 PO; FLUCONAZOLE 10100 MG PO; HYDROCORT-PRAMO30 GM RECTAL; LACTULOSE20 GM/30 M PO; LISINOPRIL-HCT1 EAC2 PO; PROTONIX40 M2 PO; SERTRALINE HCL100 MG PO; XIFAXAN550 M1 PO
[2019-11-22 14:37] VITALS: BP 135/64
[2019-11-22 15:52] VITALS: BP 108/50
--- NOTE | 2019-11-22 17:24 | NUR ---
ASSUMMED CARE OF PT UPON ADMISSION TO UNIT, PT ALERT AND ORINETED, PT TRANSFERS WITH GB WALKER ASSIST OF 1, AMBULATED TO BATHROOM, HAD MODERATE BM WITH LARGE AMOUNT OF BRIGHT RED BLOOD IN TOILET, DISCUSSED WITH PT AND AND STATES THAT WHEN SHE CLEANSES HIM AFTER BM SHE HAS NOTED LARGE BLOODY CLOTS, OBTAIND ORDER FOR GI CONSULT, PICC LINE PATENT IN RIGHT UPPER ARM, PT C/O SORE THROAT, THROAT SPRAY IN ROOM BUT STATES HE DOESNT FEEL IT HELPS, ASSISTED PT TO BATH SITTING AT SINK, BRUSH PATENT AND DRAINING ORANGE URINE, RASH NOTED ON BACK WITH PEELING AREAS, OOINTMENT APPLIED, EDEMA IN BILATERAL LE, PT ENCOURAGED TO USE IS AND TO COUGH AND DEEP BREATHE, PT AND ORIENTED TO ROOM AND REHAB ROUTINE, ASSESSMENT COMPLETE, HOURLY ROUNDING COMPLETE, WILL CONTINUE TO MONITOR.
[2019-11-22 19:17] LABS: CALCIUM 8.3 mg/dL (8.5-10.1); POTASSIUM 3.4 mmol/L (3.5-5.1)
[2019-11-22 20:04] VITALS: BP 135/65
--- NOTE | 2019-11-22 20:06 | NUR ---
ON ADMISSION PATIENT'S ASPIRIN HAD BEEN D/C PRIOR TO ADMISSION TO ROOM 321 SO PATIENT WAS NOT ON ANTICOAGULATED MEDICATION.
--- NOTE | 2019-11-22 21:10 | NUR ---
AWAKENED FOR REASSESSMENT AND MEDICATION PASS. DENIES DISCOMFORT. CALL LIGHT WITHIN REACH. BRUSH TO DEPENDENT DRAINAGE WITH ORANGE URINE.
[2019-11-23 03:59] LABS: HEMATOCRIT 27.6 % (42.0-52.0); HEMOGLOBIN 9.4 gm/dL (14.0-18.0); MCH 29.7 pg (26.0-34.0); MCHC 34.2 g/dL (28.0-37.0); MPV 8.1 fl. (7.2-11.1); RBC 3.17 mil/uL (4.50-6.00); RDW-CV 16.3 % (10.5-14.5); WBC 6.1 thou/uL (4.0-11.0)
[2019-11-23 04:02] LABS: CALCIUM 7.9 mg/dL (8.5-10.1); CREATININE 0.9 mg/dL (0.6-1.3); POTASSIUM 3.4 mmol/L (3.5-5.1)
--- NOTE | 2019-11-23 05:30 | NUR ---
RESTED ON/OFF. GOOD BLOOD RETURN FROM RIGHT UPPER ARM PICC. HOURLY ROUNDING IN PROGRESS.
[2019-11-23 08:00] VITALS: BP 124/60
--- NOTE | 2019-11-23 16:39 | NUR ---
AM ASSESSMENT AND VITAL SIGNS COMPLETED DOCUMENTED. PT WORKED WITH ALL THERAPIES, TOLERATED WELL. BILATERAL VENOUS DOPPLER OF LOWER EXTREMETIES NEGATIVE FOR DVT. PT IS AMBULATORY WITH A WALKER AND STAND BY ASSIST, ABLE TO MANAGE HIS BARRY CARE AND CLOTHING INDEPENDENTLY. PT ENCOURAGED TO KEEP HIS LEGS ELEVATED TO DECREASE SWELLING AND CELLULITIS. PT WILL BE STARTING A BOWEL PREP FOR A COLONOSCOPY TOMORROW. FALL PRECAUTIONS AND HOURLY ROUNDING CONTINUE.
--- NOTE | 2019-11-23 18:20 | NUR ---
DR MOSES CALLED AND RESCHEDULED FOR MONDAY. PT NOTIFIED.
[2019-11-23 19:20] VITALS: BP 149/70
--- NOTE | 2019-11-23 19:20 | NUR ---
IN [employer] WATCHING TV. BRUSH TO DEPENDENT DRAINAGE WITH ORANGE URINE. CALL LIGHT WITHIN REACH.
[2019-11-23 22:02] LABS: CALCIUM 8.4 mg/dL (8.5-10.1); CREATININE 0.9 mg/dL (0.6-1.3); POTASSIUM 3.2 mmol/L (3.5-5.1)
[2019-11-23 22:06] LABS: MAGNESIUM 1.6 mg/dL (1.8-2.4)
--- NOTE | 2019-11-24 05:14 | NUR ---
RESTED QUIETLY. MG+ AND K+ REPLACED WITH ELECTROLYTE PROTOCOL. PATIENT TO RECEIVE ANOTHER DOSE OF MG+ BEFORE ELECTROLTYES ARE RECHECKED. HOURLY ROUNDING IN PROGRESS.
[2019-11-24 08:00] VITALS: BP 126/58
[2019-11-24 10:47] LABS: HEMATOCRIT 29.1 % (42.0-52.0); HEMOGLOBIN 9.8 gm/dL (14.0-18.0); MCH 29.4 pg (26.0-34.0); MCHC 33.8 g/dL (28.0-37.0); MPV 8.4 fl. (7.2-11.1); RBC 3.34 mil/uL (4.50-6.00); WBC 6.2 thou/uL (4.0-11.0)
[2019-11-24 11:09] LABS: ALBUMIN 2.2 g/dL (3.4-5.0); CALCIUM 8.1 mg/dL (8.5-10.1); CREATININE 0.8 mg/dL (0.6-1.3); MAGNESIUM 1.6 mg/dL (1.8-2.4); POTASSIUM 3.9 mmol/L (3.5-5.1); TOTAL BILIRUBIN 2.7 mg/dL (<0.1-1.0); TOTAL PROTEIN 7.2 g/dL (6.4-8.2)
--- NOTE | 2019-11-24 18:21 | NUR ---
COLON PREP STARTED ORDERED. PT WILL BE NPO AFTER MIDNIGHT FOR COLONOSCOPY MONDAY. FC DC'D PER DR STORM'S REQUEST. PT HASN'T VOIDED BUT STATES HE ISN'T FEELING AN URGE TO VOID AND DOESN'T FEEL ANY PRESSURE IN HIS BLADDED. UA NEEDS TO BE COLLECTED. FALL PRECAUTIONS AND HOURLY ROUNDING CONTINUE.
--- NOTE | 2019-11-24 19:20 | NUR ---
SITTING UP IN RECLINER WITH LEGS ELEVATED. WATCHING TV AND DRINKING GOLYTE. 3+ EDEMA NOTED TO RIGHT LOWER EXTREMITY. AMBULATED TO THE BATHROOM WITH SBA, WALKER. WOULDN'T PUT GAITBELT ON. STATES IN A HURRY. VOIDED URINE ON THE FLOOR IN THE BATHROOM. HAD SMALL PIECES OF BROWN FORMED STOOL. INFORMED PATIENT THAT HIS STOOL NEEDED TO BE CLEAR IN ORDER TO HAVE COLONOSCOPY DONE TOMORROW. ENCOURAGED PATIENT TO KEEP DRINKING THE GOLYTE. PATIENT ON CLEAR LIQUIDS. REMINDED PATIENT OF NPO STATUS AFTER MIDNIGHT. GAVE A DOSE OF ORAL MAGNESIUM FOR 1.6 MG+ LEVEL. CALL LIGHT WITHIN REACH. PATIENT STATES WANTS TO STAY UP IN RECLINER FOR NOW. TWO BLANKETS FROM BLANKET WARMER PROVIDED. PATIENT COMPLAINING OF BEING COLD. OTHER RN ON DUTY CALL[employer] TO INFORM THEM OF THE UNIT BEING COLD. HOUSEKEEPING NOTIFIED OF NEED FOR BATHROOM FLOOR TO BE MOPPED.
[2019-11-24 19:25] VITALS: BP 128/63
--- NOTE | 2019-11-25 04:31 | NUR ---
RESTED FROM ABOUT MIDNIGHT TO 0400. STOOL SEEMS TO BE BE CLOSE TO CLEAR. DIFFICULT TO ASCERTAIN DUE TO PATIENT'S ORANGE URINE. ASKED PATIENT IF WITH NEXT VOID IF HE THOUGHT HE COULD VOID IN THE URINAL FOR A SPECIMAN AND PATIENT STATES HE THOUGHT HE COULD. NPO FOR COLONOSCOPY. HOURLY ROUNDING IN PROGRESS.
[2019-11-25 08:23] VITALS: BP 120/63
[2019-11-25 08:27] VITALS: BP 120/63
[2019-11-25 08:51] LABS: URINE BILIRUBIN NEGATIVE (Negative); URINE BLOOD 1+ (Negative); URINE CLARITY CLEAR; URINE COLOR YELLOW; URINE GLUCOSE-RANDOM NEGATIVE (Negative); URINE KETONES NEGATIVE (Negative); URINE LEUKOCYTES-REFLEX TRACE (Negative); URINE NITRITE-REFLEX NEGATIVE (Negative); URINE PROTEIN NEGATIVE (Negative); URINE SPECIFIC GRAVITY 1.015 (1.005-1.030); URINE UROBILINOGEN 0.2 E.U./dl (0.2-1.0)
[2019-11-25 08:57] LABS: SQUAMOUS 0-3 Few /LPF (0-3); URINE RBC 0-2 Rare /HPF (0-2); URINE WBC-REFLEX 0-5 Rare /HPF (0-5)
[2019-11-25 08:58] LABS: MUCUS 4-6 Moderate strn/LPF (None Seen)
[2019-11-25 08:59] LABS: CRYSTALS None Seen /LPF (None Seen); FINE GRANULAR CASTS 0-3 Few /LPF (None Seen); HYALINE CASTS 0-3 Few /LPF (None Seen)
--- NOTE | 2019-11-25 09:51 | CON ---
[address] [address] CONSULTATION Name: CYNTHIA LIZARRAGA Room: [address] IN .R.#: [id number] Admission: 11/22/19 Attend Phys: Mello Serrato MD Discharge: Date of : 60 Report #: [id number] THIS REPORT FOR: //name// cc: Physician not on staff Physician not on staff ~ THIS REPORT FOR: //name// DATE OF SERVICE: 11/23/2019 HISTORY OF PRESENT ILLNESS: This is a pleasant 59-year-old male who has a past medical history significant for coronary artery disease, hypertension and hyperlipidemia. The patient was brought in to [facility] a few days back when he was found unresponsive at a truck stop. The patient was diagnosed with sepsis and since has been discharged to the rehabilitation unit for further evaluation. The gastroenterology service has now been consulted for hematochezia. The patient reports that he has noticed blood and blood clots while wiping for the last several days. The patient reports that yesterday, he had a large bloody bowel movement with bright red blood enough to turn the toilet bowl red in color. The patient denies any abdominal pain. The patient denies similar episodes in the past. He does report having a colonoscopy 5 years back, which was unremarkable. PAST MEDICAL HISTORY: Hypertension, depression. PAST SURGICAL HISTORY: Nonsignificant. SOCIAL HISTORY: The patient denies smoking or recreational drug use. He does give a history of alcohol abuse. FAMILY HISTORY: No family history of colon cancer or Rucker related neoplasia. REVIEW OF SYSTEMS: Comprehensive 10-point review of systems is negative except for what was mentioned in the HPI. PHYSICAL EXAMINATION: VITAL SIGNS: Temperature 37.0, pulse rate 70, respirations 16, blood pressure 124/50. GENERAL: The patient is alert, awake, oriented x 3. HEENT: Pupils are equal, round, reactive to light and accommodation. Mucous membranes are moist. There is no congestion. LUNGS: Clear to auscultation bilaterally. CARDIOVASCULAR: Rate and rhythm regular, S1, S2 present. ABDOMEN: Soft. There is no distention, guarding or rigidity. EXTREMITIES: Warm, trace edema. LABORATORY DATA: Hemoglobin 9.0, baseline hemoglobin around 10, [place] [address] CONSULTATION Name: CYNTHIA LIZARRAGA Room: [address] IN [facility]#: [id number] Admission: 11/22/19 Attend Phys: Mello Serrato MD Discharge: Date of : 60 Report #: [id number] 27.6, WBC count 6.1, platelet count 77. Sodium 134, potassium 3.4, chloride 101, bicarbonate 28, BUN 14, creatinine 0.9. ASSESSMENT AND PLAN: A pleasant 59-year-old male who presented initially to the hospital with septic shock and since has been transferred to the rehabilitation unit. He now presents with hematochezia. The patient has painless hematochezia with a small drop in hemoglobin. I would recommend a colonoscopy for further evaluation. It appears that the patient will have to be transferred to Med/Surg before this can happen, we will discuss this with his primary team to facilitate transfer. Thank you for this consultation. <ELECTRONICALLY SIGNED> By: Omar Patricio MD 11/25/19 0951 1431 [id number] Patricio MD /nt
--- NOTE | 2019-11-25 12:16 | NUR ---
Nutrition: RD saw pt last week as well. Pt now admitted to Rehab. Has had some edema and fluid-related wt changes. Wt is 321#. PMHx: OBE, HTN, ETOH cirrhosis. BG 105, alb 2.2, prealb 8.1 - severely depleted. Hopeful for good po intake today, as diet was just advanced to [facility] from NPO. Will follow weekly on Rehab unit. Low nutrition risk.
[2019-11-25 13:00] VITALS: BP 149/73
--- NOTE | 2019-11-25 13:52 | NUR ---
ASSUMED CARE AT 0730. ALERT ORIENTED PLEASANT COOPERATIVE. HX OF ENCEPHALOPATHY. PT. NPO FOR COLONOSCOPY THIS A.M. TRANSFERS WITH SBA G BELT WALKER FROM BED TO W/C. RETURNED AROUND 1300 FROM COLONOSCOPY PER W/C. NO BIOPSY WAS DONE ONLY HEMORHOIDS NOTED. DID HAVE SOME ITCHING IN PACU SLIGHT RASH NOTED ON ABDOMEN, WAS GIVEN BENADYL IV IN PACU. VS WERE WNL MEAL AND WATER PROVIDED. AASHISH AT BEDSIDE. VOIDS PER URINAL. RESTING IN BED UPON RETURN TO ROOM. HOURLY ROUNDING COMPLETED.
--- NOTE | 2019-11-25 16:27 | NUR ---
PT. HAS PARTICIPATED IN THERAPIES AFTER LUNCH AND HAS HAD C/O PAIN RT. LOWER EXTREMITY. REDNESS IN THIS AREA OINTMENT APPLIED AND DR. FLORES ORDERED WOUND NURSE CONSULT SPOKE WITH WOUND NURSE AND HE WILL SEE PT. IN A.M. TRAMADOL ORDERED FOR PAIN PER DR. FLORES. APPETITE GOOD AT LUNCH MEAL.
[2019-11-25 19:55] VITALS: BP 104/46
[2019-11-26 05:02] LABS: HEMATOCRIT 25.3 % (42.0-52.0); HEMOGLOBIN 8.5 gm/dL (14.0-18.0); MCH 29.5 pg (26.0-34.0); MCHC 33.5 g/dL (28.0-37.0); MCV 88.1 fL (80.0-100.0); MPV 8.1 fl. (7.2-11.1); RBC 2.87 mil/uL (4.50-6.00); RDW-CV 16.2 % (10.5-14.5); WBC 4.1 thou/uL (4.0-11.0)
[2019-11-26 05:38] LABS: ALBUMIN 1.8 g/dL (3.4-5.0); CALCIUM 7.7 mg/dL (8.5-10.1); CREATININE 0.9 mg/dL (0.6-1.3); MAGNESIUM 1.6 mg/dL (1.8-2.4); POTASSIUM 3.7 mmol/L (3.5-5.1); TOTAL BILIRUBIN 1.6 mg/dL (<0.1-1.0); TOTAL PROTEIN 6.7 g/dL (6.4-8.2)
[2019-11-26 07:30] VITALS: BP 121/62
--- NOTE | 2019-11-26 13:39 | NUR ---
INITIAL ASSESSMENT: PATIENT ADMITTED TO THE ACUTE IN REHAB UNIT ON 11/22/19 WITH A DIAGNOSIS OF ENCEPHALOPATHY. PT ALERT AND ORIENTED. 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 PT USED 0 DME PRIOR TO ADMIT. PT HAS 0 HX OF HH OR SNF. PT RESIDES AT HOME IN [place] WITH SPOUSE. PT SPOUSE HERE AT BEDSIDE, AND CURRENTLY STAYING AT A LOCAL HOTEL. PT'S SPOUSE INFORMS THAT HER AND THE PT PLAN TO FLY HOME AT D/C. CM ORIENTED PT AND HIS SPOUSE TO THE REHAB UNIT AND PROCESSES, TEAM CONFRENCE MEETING, RESIDENTS RIGHTS INFO, AND TO THE ROLE OF CM. CM WILL REMAIN AVAILABLE TO ASSIST AND FOLLOW NEEDED.
--- NOTE | 2019-11-26 15:25 | NUR ---
ASSUMED CARE AT 0730. ALERT ORIENTED PLEASANT COOPERATIVE. HX OF ENCEPHALOPATHY CELLULITIS RT. LOWER LEG. C/O PAIN RT. FOOT AND LOWER LEG REDNESS AND WARMTH NOTED. WOUND CARE SAW PT. THIS A.M. ORDERED TUBIGRIP PER DR. FLORES ORDER RT. LEG. ELEVATED RT. LEG WHEN POSSIBLE. PARTICIPATING IN THERAPIES. MEDICATED X 1 WITH TRAMADOL FOR PAIN WITH MINIMAL RELIEF. AT BEDSIDE. RT. LEG XRAY DONE NEGATIVE. IV VANCOMYCIN STARTED TODAY PER DR. FLORES. HOURLY ROUNDING COMPLETED.
--- NOTE | 2019-11-26 16:32 | NUR ---
WOUND NURSE: PATIENT SEEN TODAY TO ADDRESS CHANGE IN INTEGUMENTARY STATUS IN RIGHT LOWER LEG R/T CELLULITIS. PROVIDED WITH TUBIGRIPS BASED ON CALF MEASUREMENT AND APPLIED TOES TO KNEE ON RLE. ENCOURAGED THE USE OF MOISTURIZERS NIGHTLY TO PROTECT SKIN FROM FISSURES AND CHAFFING. RECOMMEDED TO DR. FLORES TO CONSIDER USE OF HIBICLENS TO THE AFFECTED AREA.
--- NOTE | 2019-11-26 16:39 | NUR ---
CM SPOKE TO THE PT AND HIS SPOUSE TO DISCUSS ANY QUESTIONS OR CONCERNS THAT THEY MAY HAVE FOR TOMORROWS TEAM CONFRENCE MEETING. PT HAS NO QUESTIONS OR CONCERNS. PT'S SPOUSE INFORMS THAT SHE WANTS TO KNOW HOW MUCH LONGER PT WILL BE HERE, AND IF HE WILL BE ABLE TO FLY HOME AT D/C? PT'S SPOUSE INFORMS THAT SHE IS ANXIOUS TO GET HIM HOME. CM WILL REMAIN AVAILABLE TO ASSIST AND FOLLOW NEEDED.
[2019-11-26 19:45] VITALS: BP 132/70
[2019-11-27 05:22] LABS: HEMATOCRIT 25.4 % (42.0-52.0); HEMOGLOBIN 8.4 gm/dL (14.0-18.0); MCH 29.2 pg (26.0-34.0); MCHC 33.2 g/dL (28.0-37.0); MPV 7.9 fl. (7.2-11.1); RBC 2.88 mil/uL (4.50-6.00); RDW-CV 16.5 % (10.5-14.5); WBC 4.6 thou/uL (4.0-11.0)
[2019-11-27 06:00] LABS: CALCIUM 8.3 mg/dL (8.5-10.1); CREATININE 0.8 mg/dL (0.6-1.3); POTASSIUM 3.8 mmol/L (3.5-5.1)
[2019-11-27 08:00] VITALS: BP 124/58
--- NOTE | 2019-11-27 10:28 | NUR ---
AM ASSESSMENT AND VITAL SIGNS COMPLETED DOCUMENTED. TRAMADOL GIVEN FOR C/O RIGHT LOWER LEG PAIN. PT CONTINUES TO WORK WITH THERAPIES AND IS PROGRESSING WELL. ORTHO CONSULTED FOR OBJECT IDENTIFIED ON THE XRAY OF THE LOWER LEG. FALL PRECAUTIONS AND HOURLY ROUNDING CONTINUE.
--- NOTE | 2019-11-27 15:01 | NUR ---
TEAM CONFRENCE MEETING HELD TODAY. CM AND PHYSICIAN INFORMED PT AND SPOUSE OF THE MEETING AND PLAN TO RE-TEAM THE PT WITH THE POSSIBLY OF D/C PENDING PT'S PROGRESS. PT AND SPOUSE IN AGREEMENT WITH THE PLAN. PT PROGRESSING TOWARDS GOALS, BUT BARRIERS ARE RLE PAIN, WEAKNESS, DECREASED STRENGTH AND BALANCE, AND ENDURANCE. PT'S SPOUSE INFORMS THAT SHE WILL HAVE SHORT-TERM DISABILITY PAPERWORK THAT WILL NEED TO BE SIGNED FOR THE PT'S JOB. CM WILL REMAIN AVAILABLE TO ASSIST AND FOLLOW NEEDED.
--- NOTE | 2019-11-27 15:28 | NUR ---
I have reviewed the documentation by OSMANY CROSS from 11/25/19 to 11/27/19 and I concur with it. MARIBEL BURCIAGA
[2019-11-27 20:00] VITALS: BP 137/66
[2019-11-27 20:04] VITALS: BP 115/34
--- NOTE | 2019-11-27 20:15 | NUR ---
AMBULATED TO THE BATHROOM WITH SBA, GAITBELT, WALKER TO VOID. STATES RIGHT LEG PAIN AT A "6". TRAMADOL GIVEN. CALL LIGHT WITHIN REACH.
--- NOTE | 2019-11-28 05:28 | NUR ---
RESTED QUIETLY. AWAKE SINCE ABOUT 0430. NO FURTHER COMPLAINT OF PAIN. USED THE URINAL DURING THE NIGHT. HOURLY ROUNDING IN PROGRESS.
[2019-11-28 08:00] VITALS: BP 129/60
--- NOTE | 2019-11-28 19:30 | NUR ---
SITTING UP IN RECLINER WATCHING TV. DENIES NEED FOR PAIN MEDICATION AT THIS TIME. URINAL AND CALL LIGHT WITHIN REACH.
[2019-11-28 19:50] VITALS: BP 128/57
[2019-11-29 04:06] LABS: HEMATOCRIT 24.4 % (42.0-52.0); HEMOGLOBIN 8.3 gm/dL (14.0-18.0); MCH 30.2 pg (26.0-34.0); MCHC 34.1 g/dL (28.0-37.0); MCV 88.5 fL (80.0-100.0); RBC 2.76 mil/uL (4.50-6.00); RDW-CV 16.9 % (10.5-14.5); WBC 4.5 thou/uL (4.0-11.0)
[2019-11-29 04:19] LABS: CALCIUM 8.5 mg/dL (8.5-10.1); CREATININE 1.5 mg/dL (0.6-1.3); POTASSIUM 3.8 mmol/L (3.5-5.1)
--- NOTE | 2019-11-29 05:09 | NUR ---
RESTED ON/OFF. GAVE TRAMADOL AT 2100 FOR COMPLAINT RIGHT LEG PAIN WITH RELIEF. ZAYRA CELLULITIS WRAP AROUND RIGHT LEG DRY INTACT. PATIENT KEPT RIGHT LEG ELEVATED ON A PILLOW. USED URINAL DURING THE NIGHT. HOURLY ROUNDING IN PROGRESS.
[2019-11-29 08:04] VITALS: BP 121/62
--- NOTE | 2019-11-29 16:20 | NUR ---
ALERT AND ORIENTED X4. UP WITH STAND BY ASSIST, GAIT BELT AND WALKER. USING PO PAIN MEDICATION TO HELP WITH RIGHT LEG PAIN. CONTINUES ON IV ANTIBIODIC WITHOUT ADVERSE REACTIONS OR SIDE EFFECTS. HAS PICC PATENT TO RIGHT UPPER EXTREMITY. USES CALL LIGHT WHEN NEEDING ASSIST.
[2019-11-29 20:09] VITALS: BP 144/60
[2019-11-30 09:02] VITALS: BP 132/67
[2019-11-30 10:41] LABS: HEMATOCRIT 26.5 % (42.0-52.0); HEMOGLOBIN 8.9 gm/dL (14.0-18.0); MCH 29.7 pg (26.0-34.0); MCHC 33.5 g/dL (28.0-37.0); MCV 88.6 fL (80.0-100.0); MPV 8.6 fl. (7.2-11.1); RBC 2.99 mil/uL (4.50-6.00); WBC 4.1 thou/uL (4.0-11.0)
[2019-11-30 10:58] LABS: ALBUMIN 1.9 g/dL (3.4-5.0); CALCIUM 8.8 mg/dL (8.5-10.1); CREATININE 1.8 mg/dL (0.6-1.3); MAGNESIUM 1.5 mg/dL (1.8-2.4); POTASSIUM 4.3 mmol/L (3.5-5.1); TOTAL BILIRUBIN 1.5 mg/dL (<0.1-1.0); TOTAL PROTEIN 7.3 g/dL (6.4-8.2)
--- NOTE | 2019-11-30 18:12 | NUR ---
ALERT AND ORIENTED X4. UP WITH STAND BY ASSIST AND GAIT BELT IN ROOM. AMBULATED WITH GAIT BELT AND WALKER IN HALLWAY. USING PO PAIN MEDICATION TO HELP WITH RIGHT LEG PAIN. CONTINUES ON IV ANTIBIODIC WITHOUT ADVERSE REACTION. CREATININE SHOWED AN INCREASE. IVF ORDERED AND CURRENTLY INFUSING. WITHOUT DIFFICULTY. RENAL ULTRASOUND ALSO ORDERED. WILL CONTINUE TO MONITOR. USES CALL LIGHT WITHIN REACH.
[2019-11-30 19:00] VITALS: BP 135/64
--- NOTE | 2019-12-01 05:13 | NUR ---
ASSUMED CARES AT 1920. ALERT AND ORIENTED. PLEASANT. DENIED ANY NEED FOR PAIN MEDS. SL UMM PICC WITH NS @ 50 CC/HR. SBA WITH GAIT BELT. UP TO BR OR USED URINAL. MAG REPLACED. SLEPT MOST OF THE NIGHT. CALL LIGHT IN REACH AND BED ALARM ON.
[2019-12-01 06:04] LABS: HEMATOCRIT 25.5 % (42.0-52.0); HEMOGLOBIN 8.5 gm/dL (14.0-18.0); MCH 29.5 pg (26.0-34.0); MCHC 33.2 g/dL (28.0-37.0); MCV 88.9 fL (80.0-100.0); RBC 2.87 mil/uL (4.50-6.00); RDW-CV 17.3 % (10.5-14.5); WBC 4.7 thou/uL (4.0-11.0)
[2019-12-01 06:17] LABS: CALCIUM 8.5 mg/dL (8.5-10.1); CREATININE 1.7 mg/dL (0.6-1.3); MAGNESIUM 1.5 mg/dL (1.8-2.4); POTASSIUM 4.2 mmol/L (3.5-5.1)
[2019-12-01 08:03] VITALS: BP 93/51
--- NOTE | 2019-12-01 15:57 | NUR ---
ALERT AND ORIENTED X4. C/O RIGHT LEG PAIN BUT DENIED NEED FOR PAIN MEDICATION AT THIS TIME. UP WITH 1 ASSIST, GAIT BELT AND WALKER TO AMBULATE IN HALLWAY. UP WITH STAND BY ASSIST AND GAIT BELT IN ROOM. IVF'S INFUSING WITHOUT DIFFICULTY. CONTINUES TO RECEIVE IV ANTIBIODIC WITHOUT ADVERSE REACTIONS OR SIDE EFFECTS. USES CALL LIGHT WITHIN REACH.
[2019-12-01 19:31] VITALS: BP 121/62
--- NOTE | 2019-12-02 05:42 | NUR ---
ASSUMED CARES AT 1920. ALERT AND ORIENTED. PLEASANT. DENIED ANY NEED FOR PAIN MEDS. TUBIGRIPS TO RLE. SL PICC UMM WITH NS @50 ML/HR. SBA WITH GAIT BELT. UP TO BR OR USED URINAL. MAGNESIUM REPLACED ORALLY AND LAB RECHECK WAS 1.5. REPLACED MG AGAIN VIA IV AND LAB REDRAWN. SLEPT OFF AND ON. CALL LIGHT IN REACH.
[2019-12-02 06:29] LABS: CALCIUM 8.7 mg/dL (8.5-10.1); CREATININE 1.8 mg/dL (0.6-1.3); POTASSIUM 4.3 mmol/L (3.5-5.1)
[2019-12-02 08:00] VITALS: BP 98/44
--- NOTE | 2019-12-02 14:19 | NUR ---
AM ASSESSMENT AND VITAL SIGNS COMPLETED DOCUMENTED. PT'S BP WAS 98/44 THIS AM AND HE RECEIVED A 1 L FLUID BOLUS. PT CONTINUES TO WORK WITH PT, OT AND ST. PT IS UP IN HIS ROOM WITHOUT AIDS. SINGLE LAYER [employer] WORKER ASSISTED LIVING TO RIGHT LOWER LEG AND LEGS ARE KEPT ELEVATED WHEN IN THE RECLINER. PRN TRAMADOL GIVEN FOR C/O PAIN IN THE AFFECTED LEG. PT STARTED PO ABX TODAY. FALL PRECAUTIONS AND HOURLY ROUNDING CONTINUE.
[2019-12-02 19:00] VITALS: BP 118/56
--- NOTE | 2019-12-02 19:50 | NUR ---
SITTING UP IN RECLINER WITH LEGS ELEVATED AND WATCHING TV. TRAMADOL GIVEN FOR COMPLAINT OF RIGHT LEG PAIN RATED "5". CALL LIGHT WITHIN REACH. GOOD BLOOD RETURN FROM RIGHT UPPER ARM SINGLE LUMEN PICC LINE.
--- NOTE | 2019-12-03 05:08 | NUR ---
RESTED QUIETLY. NO FURTHER COMPLAINT OF PAIN. USED URINAL DURING THE NIGHT. HOURLY ROUNDING IN PROGRESS.
[2019-12-03 07:53] VITALS: BP 125/69
[2019-12-03 11:54] LABS: CALCIUM 9.1 mg/dL (8.5-10.1); CREATININE 1.8 mg/dL (0.6-1.3); POTASSIUM 4.4 mmol/L (3.5-5.1)
--- NOTE | 2019-12-03 14:43 | NUR ---
CM SPOKE TO THE PT AND HIS SPOUSE TO DISCUSS ANY QUESTIONS OR CONCERNS THAT THEY MAY HAVE. PT HAS NO QUESTIONS OR CONCERNS AT THIS TIME. PT'S SPOUSE INFORMS THAT SHE HAS SPOKEN TO [facility] AND THEY ARE REQUESTING ADDITONAL INFO TO ASSIST IN OBTAINING APPROVAL FOR THE PT TO RECEIVE TRANSPORTATION ASSISTANCE AT D/C. CM PROVIDED PT'S CLINICAL INFO TO [facility] AND AM AWAITING RETURN CALL FOR APPROVAL. CM TO F/U WITH PT AND SPOUSE AFTER TEAM CONFRENCE.
--- NOTE | 2019-12-03 18:13 | NUR ---
A&O X 4, PWD, LUNGS CLEAR, HEART TONES REGULAR, + BS X 4 QUADS. PEDAL PULSES PRESENT, 2+ PULSES, LOWER RIGHT LEG EDEMA/REDNESS FROM CELLULITIS NOTED. MEDIGRIP APPLIED TO ADALBERTO LOWER LEGS PER DR. FLORES FROM KNEE TO BALL OF FEET. NEPHRO CONSULTED TODAY AND NEW ORDERS OBTAINED AND CARRIED OUT. UA OBTAINED AND TAKEN TO LAB. BLADDER SCAN DONE AFTER URINATING AND PT HAD 48MLS LEFT IN BLADDER. PICC LINE RIGHT UPPER ARM INTACT AND PATENT. UMAIR BLOOD WITHOUT DIFFICULTY FOR LABS TODAY. FLUSHED WITHOUT DIFFICULTY. C/O PAIN X 1 IN LOWER RT LEG AND RECEIVED PAIN PILL AT 0949 THIS AM. PT SITTING UP IN CHAIR VISTING WITH WHEN NOT IN THERAPY. TOLERATED WELL. NO OTHER C/O PAIN. CALL LIGHT WITHIN REACH. WILL CONTINUE TO MONITOR.
[2019-12-03 18:15] LABS: URINE BILIRUBIN NEGATIVE (Negative); URINE BLOOD 1+ (Negative); URINE CLARITY CLEAR; URINE COLOR YELLOW; URINE GLUCOSE-RANDOM NEGATIVE (Negative); URINE KETONES NEGATIVE (Negative); URINE LEUKOCYTES NEGATIVE (Negative); URINE NITRITE NEGATIVE (Negative); URINE PROTEIN NEGATIVE (Negative); URINE SPECIFIC GRAVITY 1.015 (1.005-1.030); URINE UROBILINOGEN 0.2 E.U./dl (0.2-1.0)
[2019-12-03 18:24] LABS: CRYSTALS None Seen /LPF (None Seen); HYALINE CASTS 0-3 Few /LPF (None Seen); MUCUS None Seen strn/LPF (None Seen); SQUAMOUS 0-3 Few /LPF (0-3)
[2019-12-03 18:25] LABS: BACTERIA None Seen /HPF (None Seen); URINE RBC 3-10 Few /HPF (0-2); URINE WBC 0-5 Rare /HPF (0-5)
[2019-12-03 19:00] VITALS: BP 120/55
--- NOTE | 2019-12-03 20:40 | NUR ---
SITTING UP IN RECLINER WATCHING TV. TRAMADOL GIVEN FOR COMPLAINT OF RIGHT LEG PAIN RATED "7". IV ALBUMIN INFUSING PER RIGHT UPPER ARM SINGLE LUMEN PICC LINE. CALL LIGHT WITHIN REACH.
[2019-12-04 04:11] LABS: ALBUMIN 2.1 g/dL (3.4-5.0); CALCIUM 8.8 mg/dL (8.5-10.1); CREATININE 1.6 mg/dL (0.6-1.3); PHOSPHORUS* 3.3 mg/dL (2.5-4.9); POTASSIUM 4.1 mmol/L (3.5-5.1)
--- NOTE | 2019-12-04 04:58 | NUR ---
RESTED QUIETLY. NO FURTHER COMPLAINT OF PAIN. HOURLY ROUNDING IN PROGRESS.
[2019-12-04 07:30] VITALS: BP 116/56
[2019-12-04] MEDS ORDERED: NEURONTIN100 MG PO (11:14)
[2019-12-04] MEDS ORDERED: KEFLEX500 M1 PO (11:22)
[2019-12-04] MEDS ORDERED: TYLENOL325 M1 PO (11:33)
[2019-12-04] MEDS ORDERED: CEPACOL SORE T1 EACH PO (11:35)
[2019-12-04 13:22] VITALS: BP 116/56
--- NOTE | 2019-12-04 15:47 | NUR ---
TEAM CONFRENCE MEETING HELD TODAY. CM AND REHAB PHYSICIAN INFORMED OF THE MEETING AND PLAN TO D/C PT HOME TOMORROW, OR TODAY IF TRANSPORTATION AND DME ARE ARRANGED. PT IN AGREEMENT WITH THE PLAN HOWEVER PT'S SPOUSE INFORMS THAT SHE IS READY FOR THE PT TO D/C TODAY WITH HER AND SHE WILL PURCHASE A WALKER FOR HIM TO LEAVE WITH. D/C ORDERS WRITTEN AND PT WILL NEED TO F/U WITH HIS PCP WHEN HE RETURNS HOME. CM WILL REMAIN AVAILABLE TO ASSIST AND FOLLOW NEEDED.
--- NOTE | 2019-12-04 16:22 | NUR ---
AM ASSESSMENT AND VITAL SIGNS COMPLETED DOCUMENTED. PT HAS WORKED WITH ALL THERAPIES AND HAS BEEN MOD I IN HIS ROOM THIS AFTERNOON. PICC LINE DC'D IN ANTICIPATION OF DISCHARGE.FREQUENT OBSERVATION CONTINUES.
--- NOTE | 2019-12-04 17:56 | NUR ---
PT'S WENT TO [facility] AND RETURNED WITH A WALKER BECAUSE HIS OUT OF STATE INSURANCE WOULDN'T COVER IT. DISCHARGE INSTRUCTIONS AND PRESCRIPTION EXPLAINED TO PATIENT AND HIS , PRINTED COPY PROVIDED. PT AND BELONGINGS TRANSPORTED TO EXIT, ASSISTED INTO CAR AND DISCHARGED IN STABLE CONDITION.
== END 2019-12-04 18:01 | disposition home or self-care (01) | DRG 91 ==
LOC: M.REH 11:54
PROVIDERS: Family Medicine; Internal Medicine; Internal Medicine Gastroenterology; Internal Medicine Nephrology; ADMIT Physical Medicine & Rehabilitation; ATTEND Physical Medicine & Rehabilitation
PROC: 0DJD8ZZ Inspection of Lower Intestinal Tract, Via Natural or Artificial Opening Endoscopic (ICD-10-PCS; principal; 2019-11-25)
DX: G92 Toxic encephalopathy (principal); J15.6 Pneumonia due to other Gram-negative bacteria; A40.1 Sepsis due to streptococcus, group B; D65 Disseminated intravascular coagulation [defibrination syndrome]; R65.20 Severe sepsis without septic shock; L03.115 Cellulitis of right lower limb; N17.9 Acute kidney failure, unspecified; D68.9 Coagulation defect, unspecified; K92.1 Melena; Z68.41 Body mass index [BMI] 40.0-44.9, adult; R53.81 Other malaise; E66.01 Morbid (severe) obesity due to excess calories; I10 Essential (primary) hypertension; F32.9 Major depressive disorder, single episode, unspecified; K70.30 Alcoholic cirrhosis of liver without ascites; I25.10 Atherosclerotic heart disease of native coronary artery without angina pectoris; E78.5 Hyperlipidemia, unspecified; E88.09 Other disorders of plasma-protein metabolism, not elsewhere classified; R13.10 Dysphagia, unspecified; I95.89 Other hypotension; I87.8 Other specified disorders of veins; E83.42 Hypomagnesemia; K64.4 Residual hemorrhoidal skin tags; E83.39 Other disorders of phosphorus metabolism; M71.161 Other infective bursitis, right knee; F10.10 Alcohol abuse, uncomplicated; Z82.49 Family history of ischemic heart disease and other diseases of the circulatory system; Z79.899 Other long term (current) drug therapy